=== PATIENT | male | born 1970 | race Caucasian/White ===

== ENCOUNTER 2023-01-15 15:00 | Inpatient (IN) | payer BC ==
[2023-01-15 15:47] VITALS: BMI 39.7
[2023-01-23] MEDS ORDERED: Heparin 5,000 UNITS/ML VIAL ONE (07:13)
[2023-01-23] MEDS ORDERED: Acetaminophen 500 MG TAB ONE (07:13)
[2023-01-23] MEDS ORDERED: Ketorolac Tromethamine 30 MG/ML VIAL ONE ×2 (07:13→11:37)
[2023-01-23 08:14] LABS: ALT (SGPT) 36 U/L (8-55); AST (SGOT) 27 U/L (5-34); Albumin 4.5 g/dL (3.5-5.0); Alkaline Phosphatase 78 U/L (40-110); Anion Gap 13 mmol/L (10-20); BUN (Urea Nitrogen) 15 mg/dL (8.9-20.6); Calc. Creatinine Clearance 176 mL/min (70-130); Calcium 9.7 mg/dL (7.8-10.44); Carbon Dioxide 26 mmol/L (22-29); Chloride 105 mmol/L (98-107); Estimated GFR 109; Globulin 2.6 g/dL (2.4-3.5); Glucose 94 mg/dL (70-105); Potassium 3.8 mmol/L (3.5-5.1); Protein, Total 7.1 g/dL (6.0-8.3); Sodium 140 mmol/L (136-145)
[2023-01-23] MEDS ORDERED: Bupivacaine 0.25% HCL 30 ML VIAL ONE ×3 (08:39→09:35)
[2023-01-23] MEDS ORDERED: EPINEPHrine 1 MG/ML AMP ONE ×3 (08:39→09:25)
[2023-01-23] MEDS ORDERED: Lidocaine 2% PF 5 ML VIAL ONE ×2 (08:39)
[2023-01-23] MEDS ORDERED: SUGAMMADEX SODIUM 200 MG/2 ML VIAL ONE (08:41)
[2023-01-23] MEDS ORDERED: fentaNYL PF 100 MCG/2 ML SYRINGE ONE (08:41)
[2023-01-23] MEDS ORDERED: Promethazine HCl 25 MG/ML VIAL ONE (08:41)
[2023-01-23] MEDS ORDERED: Succinylcholine 200 MG/10 ml SYRINGE FS ONE (09:07)
[2023-01-23] MEDS ORDERED: Ondansetron PF 4 MG/2 ML Vial ONE (09:07)
[2023-01-23] MEDS ORDERED: Rocuronium Bromide 10 MG/ML (10ML VIAL) ONE (09:07)
[2023-01-23] MEDS ORDERED: Sodium Chloride 0.9% 100 ML ONE (09:07)
[2023-01-23] MEDS ORDERED: Lidocaine 1% PF 5 ML VIAL ONE (09:07)
[2023-01-23] MEDS ORDERED: CEFAZOLIN 2 GM VIAL ONE (09:07)
[2023-01-23] MEDS ORDERED: PROPOFOL 200 MG/20 ML VIAL ONE (09:07)
[2023-01-23] MEDS ORDERED: Dexamethasone 20 MG/5 ML VIAL ONE (09:07)
[2023-01-23] MEDS ORDERED: Ondansetron HCl/PF 4 MG/2 ML Vial IVP PRN (10:49)
[2023-01-23] MEDS ORDERED: Meperidine HCl/PF 25 MG/ML VIAL SLOW IVP PRN (10:49)
[2023-01-23] MEDS ORDERED: Promethazine HCl 25 MG/ML VIAL IM PRN ×2 (10:49→11:05)
[2023-01-23] MEDS ORDERED: HYDROmorphone 2 MG/ML VIAL SLOW IVP PRN (10:49)
[2023-01-23] MEDS ORDERED: Morphine 2 MG/ML VIAL SLOW IVP PRN (11:05)
[2023-01-23] MEDS ORDERED: hydrALAZINE 20 MG/ML VIAL SLOW IVP PRN (11:05)
[2023-01-23] MEDS ORDERED: Ipratropium/Albuterol 3 ML NEB NEB PRN (11:05)
[2023-01-23] MEDS ORDERED: Morphine 4 MG/ML VIAL SLOW IVP PRN (11:05)
[2023-01-23] MEDS ORDERED: Glucagon 1 MG/ML KIT IM PRN (11:05)
[2023-01-23] MEDS ORDERED: Ondansetron PF 4 MG/2 ML Vial IVP PRN (11:05)
[2023-01-23] MEDS ORDERED: Hydrocodone-Acetamin 15 ML UDCUP PO PRN (11:05)
[2023-01-23] MEDS ORDERED: Dextrose 50% Abboject 50 ML SYRINGE SLOW IVP PRN (11:05)
[2023-01-23] MEDS ORDERED: diphenhydrAMINE 50 MG/ML VIAL IVP PRN (11:05)
[2023-01-23] MEDS ORDERED: Dextrose 5% in Water 1,000 ML IV PRN (11:05)
[2023-01-23] MEDS ORDERED: Morphine 2 MG/ML VIAL ONE (12:47)
[2023-01-23] MEDS ORDERED: hydrALAZINE 20 MG/ML VIAL ONE (13:21)
[2023-01-23] MEDS: D5 1/2 NS w/20 mEq KCL 1,000 ML IV SCH ×2 (17:06→19:50)
[2023-01-23] MEDS: Ketorolac Tromethamine 30 MG/ML VIAL IVP SCH ×2 (17:06→17:31)
[2023-01-23] MEDS ORDERED: Atorvastatin Calcium 40 MG TAB PO SCH (21:00)
[2023-01-23] MEDS ORDERED: Montelukast Sodium 10 mg Tablet PO SCH (21:00)
[2023-01-24] MEDS: Ketorolac Tromethamine 30 MG/ML VIAL IVP SCH ×2 (00:04→05:02)
[2023-01-24] MEDS: D5 1/2 NS w/20 mEq KCL 1,000 ML IV SCH (03:57)
[2023-01-24 05:51] LABS: #Monocytes 1.4 thou/uL (0.11-0.59); #Neutrophils 15.3 thou/uL (1.40-6.50); %Basophils 0.1 % (0.0-1.0); %Lymphocytes 6.7 % (21.0-51.0); %Monocytes 7.9 % (0.0-10.0); %Neutrophils 84.8 % (42.0-75.0); Mean Corpuscular HGB CONC 34.3 g/dL (32.0-36.0); Mean Corpuscular Hemoglobin 31.1 pg (27.0-31.0); Mean Corpuscular Volume 90.7 fl (78.0-98.0); Mean Platelet Volume 10.6 fL (7.4-10.4); Platelet Count 197 10x3/uL (130-400); RBC Distribution Width 12.5 % (11.5-14.5); Red Blood Cell (RBC) Count 4.82 mill/uL (4.70-6.10)
[2023-01-24 06:14] LABS: Anion Gap 12 mmol/L (10-20); BUN (Urea Nitrogen) 11 mg/dL (8.9-20.6); Calc. Creatinine Clearance 176 mL/min (70-130); Calcium 8.8 mg/dL (7.8-10.44); Carbon Dioxide 25 mmol/L (22-29); Chloride 104 mmol/L (98-107); Estimated GFR 109; Glucose 114 mg/dL (70-105); Potassium 4.1 mmol/L (3.5-5.1); Sodium 137 mmol/L (136-145)
[2023-01-24 07:32] VITALS: BP 146/89; TEMP 98.1
[2023-01-24] MEDS ORDERED: Pantoprazole 40 MG VIAL IVP SCH (09:00)
== END 2023-01-24 10:30 | disposition home or self-care (01) | DRG 621 ==
LOC: SURG A 01-23 06:52
PROVIDERS: ADMIT Specialist; ATTEND Specialist
PROC: 0DB64Z3 Excision of Stomach, Percutaneous Endoscopic Approach, Vertical (ICD-10-PCS; principal; 2023-01-23)
DX: E66.01 Morbid (severe) obesity due to excess calories (principal); M19.90 Unspecified osteoarthritis, unspecified site; E78.00 Pure hypercholesterolemia, unspecified; G89.29 Other chronic pain; Z87.891 Personal history of nicotine dependence; Z79.899 Other long term (current) drug therapy; Z98.890 Other specified postprocedural states; Z68.41 Body mass index [BMI] 40.0-44.9, adult
CPT/HCPCS: 36415; 80048; 80053; 85025; 88307; A4649; C9113; J0171; J0360; J1100; J1644; J1650; J1885; J2001; J2272; J2405; J2550; J2704; J3480; J3490; S0020